=== PATIENT | female | born 1995 | race Caucasian/White ===

== ENCOUNTER 2018-10-20 13:53 | Day surgery (SDC) | payer OTHER ==
[~2018-10-20] VITALS: Ht 154.9 cm; Wt 45.2 kg
[2018-10-20] MEDS ORDERED: PRIL40 PO (14:44)
[2018-10-20] MEDS ORDERED: PROZAC 20MG20 MG PO (14:44)
[2018-10-20] MEDS ORDERED: SEROQUEL 2525 MG/TAB PO (14:45)
[2018-10-20] MEDS ORDERED: CARAFATE 1GM1 G PO (14:46)
[2018-10-20] MEDS ORDERED: KLONOPIN 0.5MG0.5 MG PO (14:46)
[2018-10-20] MEDS ORDERED: PROAIR HFA0.09 MG/AC IH (14:47)
[2018-10-20] MEDS ORDERED: 00186-0370-20 IH (14:47)
[2018-10-20] MEDS ORDERED: NEXPLANON68 MG ID (14:48)
[2018-10-20 14:51] VITALS: BP 114/68; PULSE 74; TEMP 98.1
[2018-10-20 15:50] VITALS: BP 117/72; PULSE 66; TEMP 98.2
--- NOTE | 2018-10-20 15:50 | NUR ---
Pt to [facility] via cart from [facility]O. Pt drowsy but awake. Pt ambulates to recliner with stand by assistance. Pt denies pain or nausea. Mother in room. Juice and applesauce given. Will continue to monitor. Call light within reach.
[2018-10-20 16:05] VITALS: BP 109/68; PULSE 65
--- NOTE | 2018-10-20 16:05 | NUR ---
Pt continues to rest. Denies needs. Call light within reach.
[2018-10-20 16:20] VITALS: BP 117/68; PULSE 76
--- NOTE | 2018-10-20 16:20 | NUR ---
Pt denies needs. Visiting with her mother. Call light within reach.
--- NOTE | 2018-10-20 16:35 | NUR ---
IV site discontinued with all parts intact. Discharge instructions reviewed. Pt voices understanding. Pt up to dress. Call light within reach.
--- NOTE | 2018-10-20 16:50 | NUR ---
Pt escorted to private car via wheel chair. Pt accompanied home by her mother.
== END 2018-10-20 16:50 | disposition home or self-care (01) ==
LOC: SDCO 13:53
DX: K21.9 Gastro-esophageal reflux disease without esophagitis (principal); F41.9 Anxiety disorder, unspecified; F43.10 Post-traumatic stress disorder, unspecified; K26.9 Duodenal ulcer, unspecified as acute or chronic, without hemorrhage or perforation; Z88.1 Allergy status to other antibiotic agents; Z87.891 Personal history of nicotine dependence
CPT/HCPCS: J2250; J3010; J7030

== ENCOUNTER 2018-10-30 17:55 | Emergency (ER) | payer OTHER ==
[~2018-10-30] VITALS: Ht 154.9 cm; Wt 43.2 kg
[2018-10-30 17:59] VITALS: BP 117/76; PULSE 71; TEMP 98.9
== END 2018-10-30 18:45 | disposition home or self-care (01) ==
LOC: COL.ER 17:55
DX: T76.21XA Adult sexual abuse, suspected, initial encounter (principal)

== ENCOUNTER → 2018-10-30 | Outpatient (CLI) | payer OTHER ==
[~2018-10-30] MED LIST: 00186-0370-20 IH; CARAFATE 1GM1 G PO; KLONOPIN 0.5MG0.5 MG PO; NEXPLANON68 MG ID; PRIL40 PO; PROAIR HFA0.09 MG/AC IH; PROZAC 20MG20 MG PO; SEROQUEL 2525 MG/TAB PO
== END ==
LOC: LDRO 18:44
DX: T74.21XA Adult sexual abuse, confirmed, initial encounter (principal)
CPT/HCPCS: J0696

== ENCOUNTER → 2018-10-30 | Outpatient (REF) | LOC: LDRO 18:46 | DX: T74.21XA Adult sexual abuse, confirmed, initial encounter (principal) ==

== ENCOUNTER → 2018-11-08 | Outpatient (CLI) | payer OTHER | LOC: COL.RAD 09:14 | DX: R07.9 Chest pain, unspecified (principal); R10.13 Epigastric pain; R11.2 Nausea with vomiting, unspecified | CPT/HCPCS: A9537 ==

== ENCOUNTER → 2019-05-18 | Outpatient (CLI) | payer OTHER | LOC: COL.RAD 12:53 | DX: J84.10 Pulmonary fibrosis, unspecified (principal); R91.1 Solitary pulmonary nodule | CPT/HCPCS: Q9967 ==